=== PATIENT | male | born 1945 | race Caucasian/White ===

== ENCOUNTER → 2024-01-08 06:24 | Day surgery (SDC) | payer OTHER, SELFPAY | LOC: GI 06:24 | PROVIDERS: ATTENDING PHYSICIAN Internal Medicine Gastroenterology; FAMILY PHYSICIAN Family Medicine | DX: D12.0 Benign neoplasm of cecum (principal); K57.30 Diverticulosis of large intestine without perforation or abscess without bleeding; K64.8 Other hemorrhoids; R10.32 Left lower quadrant pain | CPT/HCPCS: 45380; 88305 ==